=== PATIENT | male | born 1950 | race Caucasian/White ===

== ENCOUNTER → 2021-09-26 | Outpatient (CLI) | payer MEDICARE ==
--- NOTE | 2021-09-26 18:23 | 2DMMODE ---
[place] [address] 2 D/M-MODE ECHOCARDIOGRAM Name: KRISTIELYNDA John Room: [facility]#: [id number] Admission: 09/26/21 Attend Phys: Antelmo Martinez Discharge: Date of : 52 Date of Service: 09/26/21 1823 Report #: [id number] THIS REPORT FOR: cc: Porter Davila,Alan Foster MD [facility] ~ APPROVED REPORT Study performed: 09/26/2021 11:13:33 EXAM: Comprehensive 2D, Doppler, and color-flow Echocardiogram Patient Location: Out-Patient BSA: 2.17 HR: 72 bpm BP: 120/78 mmHg Other Information Study Quality: Good Indications HLP 2D Dimensions IVSd: 11.77 (7-11mm) LVOT Diam: 20.32 (18-24mm) LVDd: 45.87 mm PWd: 10.35 (7-11mm) Ascending Ao: 30.75 (22-36mm) LVDs: 24.86 (25-40mm) Aortic Root: 27.78 mm Volumes Left Atrial Volume (Systole) LA ESV Index: 18.90 mL/m2 Aortic Valve AoV Peak Rizwan.: 4.67 m/s AO Peak Gr.: 87.09 mmHg LVOT Max P.81 mmHg AO Mean Gr.: 53.21 mmHg LVOT Mean P.46 mmHg LVOT Max V: 1.10 m/s AO V2 VTI: 99.76 cm LVOT Mean V: 0.72 m/s MEGHAN (VTI): 0.76 cm2 LVOT V1 VTI: 23.26 cm Mitral Valve E/A Ratio: 0.72 [place] [address] 2 D/M-MODE ECHOCARDIOGRAM Name: LYNDA FLOWERS Room: [facility]#: [id number] Admission: 09/26/21 Attend Phys: Antelmo Martinez Discharge: Date of : 52 Date of Service: 09/26/21 1823 Report #: [id number] MV Decel. Time: 306.65 ms MV E Max Rizwan.: 0.59 m/s MV PHT: 88.93 ms MVA (PHT): 2.47 cm2 TDI E/Lateral E': 4.92 E/Medial E': 7.38 Medial E' Rizwan.: 0.08 m/s Lateral E' Rizwan.: 0.12 m/s Pulmonary Valve PV Peak Rizwan.: 0.97 m/s PV Peak Gr.: 3.73 mmHg Tricuspid Valve RAP Estimate: 5.00 mmHg TR Peak Gr.: 17.37 mmHg RVSP: 22.37 mmHg PA Pressure: 22.37 mmHg Left Ventricle The left ventricle is normal size. There is normal LV segmental wall motion. There is normal left ventricular wall thickness. Left ventricular systolic function is normal. LVEF is 55-60%. Grade I - abnormal relaxation pattern. Right Ventricle The right ventricle is normal size. The right ventricular systolic function is normal. Atria The left atrium size is normal. The right atrium size is normal. Aortic Valve The Aortic valve is sclerotic. No aortic regurgitation is present. Severe aortic stenosis. Mitral Valve The mitral valve is normal in structure. There is no mitral valve regurgitation noted. No evidence of mitral valve stenosis. Tricuspid Valve The tricuspid valve is normal in structure. Mild tricuspid regurgitation. Pulmonic Valve The pulmonary valve is normal in structure[place] [address] 2 D/M-MODE ECHOCARDIOGRAM Name: LYNDA FLOWERS Room: [facility]#: [id number] Admission: 09/26/21 Attend Phys: Antelmo Martinez Discharge: Date of : 52 Date of Service: 09/26/21 1823 Report #: [id number] regurgitation. Great Vessels The aortic root is normal in size. IVC is normal in size and collapses >50% with inspiration. Pericardium There is no pericardial effusion. <Conclusion> The left ventricle is normal size. There is normal left ventricular wall thickness. Left ventricular systolic function is normal. LVEF is 55-60%. Grade I - abnormal relaxation pattern. The Aortic valve is sclerotic. Severe aortic stenosis. Mild tricuspid regurgitation. Mild pulmonic regurgitation. IVC is normal in size and collapses >50% with inspiration. <ELECTRONICALLY SIGNED> By: Alan Armijo MD, FACC 09/26/211822 22 22 Alan Armijo MD, FACC /INF
== END ==
LOC: M.CRD 10:56
DX: I08.8 Other rheumatic multiple valve diseases (principal); E78.2 Mixed hyperlipidemia; E03.9 Hypothyroidism, unspecified; I82.1 Thrombophlebitis migrans

== ENCOUNTER → 2021-12-19 | Outpatient (CLI) | payer MEDICARE | LOC: M.ULTRA 12:30 | PROVIDERS: ATTEND Family Medicine | DX: L02.92 Furuncle, unspecified (principal); B99.9 Unspecified infectious disease ==